=== PATIENT | female | born 1975 | race Hispanic/Latino ===

== ENCOUNTER 2016-09-23 12:04 | Outpatient (CLI) | payer SELFPAY ==
[2016-09-25 20:06] LABS: HPV High Risk Type 16 Negative (Negative); HPV High Risk Type 18 Negative (Negative); HPV Other High Risk Types Negative (Negative)
== END 2016-09-23 12:05 | disposition home or self-care (01) ==
LOC: MADLABSP 12:04
PROVIDERS: ATTEND Family Medicine
DX: Z01.419 Encounter for gynecological examination (general) (routine) without abnormal findings (principal)
CPT/HCPCS: 87624; 88142; G0123